=== PATIENT | female | born 1970 | race Caucasian/White ===

== ENCOUNTER → 2017-01-17 | Outpatient (CLI) | payer BC ==
[~2017-01-17] MED LIST: BACTRIM DS TABL1 TA2 PO; CELEXA; KEFLEX500 MG PO
--- NOTE | ~2017-01-17 | MY11 ---
[facility] A Service of [facility] RADIOLOGY TEXT RESULTS PATIENT: ELI MORSE LOCATION: [facility] : 74 UNIT #: [id number] AGE: [address]: Ravi Foster MD SEX: F ORDER DR: [id number] [address] [address] [id number] O MR#: [id number] Acc #: [id number] NAME: ELI MORSE : 1970 SEX: F STUDY DATE/TIME: 01/17/2017 14:04 UNIT: [facility] ROOM: STUDY DESCRIPTION: MY Mammogram Screening Dig Nash Attending Physician: Ravi Foster M.D. Referring Physician: Ravi Foster M.D. Ordering Physician: Ravi Foster M.D. Primary Care Physician: Ravi Foster M.D. MEDICAL IMAGING REPORT This report is preliminary unless electronic signature is present. EXAM Bilateral digital screening mammogram with CAD. COMPARISON None. INDICATIONS Breast cancer screening. 46-year-old asymptomatic female who reports a maternal aunt and a mother with breast cancer. FINDINGS The breasts are almost entirely fatty. There are no suspicious findings in the left breast. In the middle third of the 9 o'clock right breast, there is an 8 mm focal asymmetry. In the central right breast at the junction of the middle and posterior thirds, there is a 9 mm focal asymmetry. IMPRESSION 1. No mammographic evidence of malignancy in the left breast. 2. 2 right breast focal asymmetries. Further evaluation with spot compression CC and spot compression MLO views is recommended, possibly followed by right breast ultrasound. Patients over the age of 40 are entered into a reminder system with target due date for the next mammogram. A result letter will also be sent to the patient. BIRADS: 0 Incomplete; Need additional imaging evaluation and/or prior mammograms for comparison. Dictated by... Marcus Barrios M.D. THIS IS AN ELECTRONICALLY VERIFIED REPORT [facility] A Service of [facility] RADIOLOGY TEXT RESULTS PATIENT: ELI MORSE LOCATION: [facility] : 74 UNIT #: [id number] AGE: [address]: Ravi Foster MD SEX: F ORDER DR: Marcus Barrios M.D. at 01/19/2017 7:08 PM BASSEM/rain TD: 01/18/2017 10:12 JOB #: [id number] MEDICAL IMAGING REPORT
== END | disposition home or self-care (01) ==
LOC: SMAM 12:54
DX: Z12.31 Encounter for screening mammogram for malignant neoplasm of breast (principal); N64.89 Other specified disorders of breast; Z80.3 Family history of malignant neoplasm of breast
CPT/HCPCS: G0202

== ENCOUNTER → 2017-01-29 | Outpatient (CLI) | payer BC ==
--- NOTE | ~2017-01-29 | MY8 ---
[facility] A Service of [facility] & [facility] RADIOLOGY TEXT RESULTS PATIENT: ELI MORSE LOCATION: [facility] : 74 UNIT #: [id number] AGE: [address]: Ravi Foster MD SEX: F ORDER DR: [id number] [facility] [address] [place], [place] [address] [id number] O MR#: [id number] Acc #: [id number] NAME: ELI MORSE : 1970 SEX: F STUDY DATE/TIME: 01/29/2017 8:31 UNIT: [facility] ROOM: STUDY DESCRIPTION: MY Mammogram Dx Dig Rt Attending Physician: Ravi Foster M.D. Ordering Physician: Ravi Foster M.D. Primary Care Physician: Ravi Foster M.D. MEDICAL IMAGING REPORT This report is preliminary unless electronic signature is present EXAM Unilateral additional views of the right breast and targeted right breast ultrasound 01/29/2017 INDICATIONS 46-year-old female recalled for nodular asymmetries in the right breast on her baseline screening study. No current problems. TECHNIQUE Compression CC, compression MLO and true lateral views of the right breast were obtained and reviewed with an approved CAD device. COMPARISON Mammogram 01/17/2017. Targeted ultrasound of the right breast was also performed in the upper outer quadrant and in the inner hemisphere right breast. No comparison ultrasounds. FINDINGS Mammographic findings: The nodular asymmetries in the right breast persist, 1 localizes to about 9-10 o'clock the second localizes to about 3 o'clock. They are very faint mammographically but do not completely resolve. Ultrasound was thereafter performed. Ultrasound findings: Right breast: The patient was initially scanned independently by the technologist then rescanned in my presence. Imaging of the 2 o'clock through 4 o'clock positions on the right in the location of the medially located nodule on the patient's mammogram is negative. There is no cystic or solid nodule or persistent area of shadowing. Imaging of the upper outer right breast from 9-12 o'clock was performed and in the 9 o'clock position, there is a benign tiny cyst or prominent peripheral duct present. This measures about 4 mm. It could potentially correspond to the finding in the same clock position on the mammogram but that is not definitive. Regardless, it appears benign on ultrasound and STS. [facility] A Service of [facility] & [facility] RADIOLOGY TEXT RESULTS PATIENT: ELI MORSE LOCATION: [facility] : 74 UNIT #: [id number] AGE: [address]: Ravi Foster MD SEX: F ORDER DR: the remainder of the ultrasound images from 9-12 o'clock are negative. Imaging findings are most characteristic of probably benign nodularity in the right breast perhaps representing tiny intramammary node that cannot be resolved with ultrasound. Absent new or worsening symptoms in either breast, the patient to return for a repeat mammogram on the right in 6 months to document expected stability of probably benign findings. Findings and recommendations were discussed with the patient. She voiced understanding and agreement. IMPRESSION Probably benign nodularity in the right breast as described. There is a tiny nodule in the upper outer quadrant at about 9-10 o'clock and a tiny nodule in the medial right breast at about 3 o'clock. No convincing correlate on ultrasound although the 9 o'clock nodule may correspond to a prominent duct or cyst on ultrasound. A repeat mammogram on the right in 6 months is recommended to document expected stability of the probably benign findings. See discussion above. BIRADS: 3 Probably benign finding; short interval follow up suggested. Dictated by... Abelardo Durham M.D. THIS IS AN ELECTRONICALLY VERIFIED REPORT Abelardo Durham M.D. at 01/29/2017 3:12 PM Franky TD: 01/29/2017 14:32 JOB #: [id number] MEDICAL IMAGING REPORT Page 1 of 1 COPY
--- NOTE | ~2017-01-29 | US24 ---
[facility] A Service of [facility] & [facility] RADIOLOGY TEXT RESULTS PATIENT: ELI MORSE LOCATION: [facility] : 74 UNIT #: [id number] AGE: [address]: Ravi Foster MD SEX: F ORDER DR: [id number] [facility] [address] [place], [place] [address] [id number] O MR#: [id number] Acc #: [id number] NAME: ELI MORSE : 1970 SEX: F STUDY DATE/TIME: 01/29/2017 8:51 UNIT: [facility] ROOM: STUDY DESCRIPTION: US Breast Unilateral Attending Physician: Ravi Foster M.D. Ordering Physician: Ravi Foster M.D. Primary Care Physician: Ravi Foster M.D. MEDICAL IMAGING REPORT This report is preliminary unless electronic signature is present EXAM Targeted ultrasound right breast 01/29/2017. See report for mammogram right breast same date for this dictation. BIRADS: 3 Probably benign finding. Short interval followup suggested. Dictated by... Abelardo Durham M.D. THIS IS AN ELECTRONICALLY VERIFIED REPORT Abelardo Durham M.D. at 01/29/2017 3:12 PM Lucille TD: 01/29/2017 14:35 JOB #: [id number] MEDICAL IMAGING REPORT Page 1 of 1 COPY
== END | disposition home or self-care (01) ==
LOC: CMAM 08:06
DX: R92.8 Other abnormal and inconclusive findings on diagnostic imaging of breast (principal); N63 Unspecified lump in breast
CPT/HCPCS: 76641; G0206

== ENCOUNTER 2017-04-15 23:33 | Emergency (ER) | payer BC ==
--- NOTE | ~2017-04-15 | CT2 ---
[facility] A Service of [facility] RADIOLOGY TEXT RESULTS PATIENT: ELI MORSE LOCATION: [facility] : 74 UNIT #: [id number] AGE: [address]: Johnny Johnson MD SEX: F ORDER DR: [id number] [place] [id number] E MR#: [id number] Acc #: [id number] NAME: ELI MORSE : 1970 SEX: F STUDY DATE/TIME: 04/16/2017 2:08 UNIT: [facility] ROOM: STUDY DESCRIPTION: CT Abd and Pelv W Cont Attending Physician: Johnny Johnson M.D. Ordering Physician: Johnny Johnson M.D. Primary Care Physician: Ravi Foster M.D. MEDICAL IMAGING REPORT This report is preliminary unless electronic signature is present. EXAM CT abdomen and pelvis with contrast, 04/16/17 HISTORY 46-year-old female in the ED complaining of new onset sharp abdomen pain and back pain with constipation beginning earlier today. TECHNIQUE CT examination of the abdomen and pelvis with oral and IV contrast. This CT exam was performed with one or more of the following radiation dose reduction techniques: Automatic exposure control, adjustment of mA and/or kV according to patient size, and iterative reconstruction. FINDINGS ABDOMEN FINDINGS: Liver, pancreas, spleen and kidneys are normal in size and appearance, with the exception of chronic scarring in the right mid and upper kidney. Nondistended gallbladder. No bile duct dilatation. Small bowel and colon are normal in caliber and appearance. The appendix is normal. PELVIS FINDINGS: There is a heterogeneous, fairly well defined mass within the endometrial cavity of the uterus showing evidence of internal multicystic changes. This measures up to 4.9 cm longitudinally and 4.2 cm axially. Above this, fluid is present within a mildly distended upper endometrial cavity, and a congenital septate uterus is noted. Differential diagnostic considerations include large submucosal polyp as well as endometrial carcinoma. Gynecologic referral for consideration of endometrial sampling is indicated. Both ovaries are normal. Bladder and rectum are within normal limits. No inguinal hernia. IMPRESSION 1. [place] mass within the endometrial cavity of the uterus measuring up to 4.9 cm showing internal multicystic changes. Diagnostic [facility]. [facility] A Service of [facility] & [facility] RADIOLOGY TEXT RESULTS PATIENT: ELI MORSE LOCATION: [facility] : 74 UNIT #: [id number] AGE: [address]: Johnny Johnson MD SEX: F ORDER DR: considerations include a large endometrial polyp as well as endometrial carcinoma. Gynecologic referral for endometrial sampling is indicated. Fluid is present within the upper endometrial cavity proximal to the endometrial mass. 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 2. No mass or adenopathy is seen elsewhere within the abdomen, retroperitoneum or pelvis. The ovaries are normal. No evidence of upper urinary tract obstruction. 3. Chronic right renal parenchymal scarring. 4. The appendix is negative. Dictated by... Eduard Mayen M.D. THIS IS AN ELECTRONICALLY VERIFIED REPORT Eduard Mayen M.D. at 04/16/2017 5:52 AM DESIREE/carlo TD: 04/16/2017 03:44 JOB #: [id number] MEDICAL IMAGING REPORT Page 1 of 1
[2017-04-16 00:58] LABS: URINE SOURCE CLEAN CATCH
[2017-04-16 01:01] LABS: BASOPHIL# 0.1 X10e3 (0-0.3); BASOPHIL% 0.9 % (0-2.5); EOSINOPHIL# 0.1 X10e3 (0-0.7); EOSINOPHIL% 0.7 % (0.0-7.0); HEMATOCRIT 40.3 % (35.0-45.0); HEMOGLOBIN 13.9 gm/dL (12.0-16.0); LYMPHOCYTE# 2.9 X10e3 (1.0-3.5); LYMPHOCYTE% 19.8 % (17.0-45.0); MEAN CELL VOLUME 88.1 FL (83-96); MEAN CORPUSCULAR HEMOGLOBIN 30.3 PG (28-34); MEAN CORPUSCULAR HGB CONC 34.4 g/dL (30-36); MEAN PLATELET VOLUME 7.1 FL (6.5-11.5); MONOCYTE# 0.8 X10e3 (0-1.0); MONOCYTE% 5.6 % (3.0-12.0); NEUTROPHIL# 10.6 X10e3 (1.5-7.1); PLATELET COUNT 293 X10e3 (140-420); RED BLOOD COUNT 4.58 X10e (3.90-5.30); RED CELL DISTRIBUTION WIDTH 13.4 % (11.0-15.5); WHITE BLOOD COUNT 14.5 X10e3 (4.0-10.5)
[2017-04-16 01:03] LABS: DIFF IND NO
[2017-04-16 01:03] LABS: MICRO INDICATED? YES; URINE APPEARANCE CLEAR; URINE BILIRUBIN NEG (NEG); URINE BLOOD 2+ (NEG); URINE COLOR YELLOW; URINE GLUCOSE NEG (NORM); URINE KETONE NEG (NEG); URINE LEUKOCYTE ESTERASE NEG (NEG); URINE NITRATE NEG (NEG); URINE PROTEIN NEG (NEG); URINE SPECIFIC GRAVITY 1.025 (1.003-1.035)
[2017-04-16 01:05] LABS: CULTURE INDICATED? YES; URINE BACTERIA 1+ (NEG); URINE MUCUS PRESENT; URINE SQUAMOUS EPITHELIAL CELL OCCAS /[HPF]; URINE TRANSITIONAL EPI CELLS FEW /[HPF]
[2017-04-16 01:15] LABS: AMPHETAMINE NEG (NEG); BARBITURATES NEG (NEG); BENZODIAZEPINES NEG (NEG); COCAINE NEG (NEG); MARIJUANA NEG (NEG); OPIATES NEG (NEG); TRICYCLIC ANTIDEPRESSANTS NEG (NEG); U METHADONE NEG (NEG)
[2017-04-16 01:17] LABS: ALBUMIN SERUM 3.9 g/dL (3.5-5.0); ALKALINE PHOSPHATASE 89 U/L (32-92); ALT (SGPT) 15 U/L (10-40); AST (SGOT) 14 U/L (10-42); BILIRUBIN,TOTAL 0.6 mg/dL (0.2-2.0); BLOOD UREA NITROGEN 9 mg/dL (9-23); CALCIUM SERUM 8.6 mg/dL (8.4-10.2); CARBON DIOXIDE 22 mmol/L (22-31); CHLORIDE 110 mmol/L (100-111); CREATININE SERUM 0.6 mg/dL (0.6-1.4); GLOM FILT RATE Estimated 110.9 mL/min (>60); GLUCOSE FASTING 114 mg/dL (70-110); LIPASE 22 U/L (22-51); POTASSIUM 3.5 mmol/L (3.5-5.1); PROTEIN TOTAL SERUM 7.5 g/dL (6.0-8.3); SODIUM 138 mmol/L (135-145)
[2017-04-16 01:18] LABS: BILIRUBIN, DIRECT <0.1 mg/dL (0.0-0.2); BILIRUBIN,INDIRECT 0.5 mg/dL (0.0-0.9)
[2017-04-18 10:32] LABS: CHLAMYDIA TRACH Not Detected (Not Detected); N GONOR Not Detected (Not Detected)
== END 2017-04-16 03:16 | disposition home or self-care (01) ==
LOC: SED 23:33
PROVIDERS: Emergency Medicine
DX: N85.8 Other specified noninflammatory disorders of uterus (principal); F17.200 Nicotine dependence, unspecified, uncomplicated; Z88.5 Allergy status to narcotic agent; Z79.899 Other long term (current) drug therapy
CPT/HCPCS: 36415; 74177; 80048; 80076; 80307; 81003; 83690; 84703; 85025; 87086; 87491; 87591; 87808; 87905; 96374; 99284; J1885; Q9967